=== PATIENT | male | born 1990 | race Caucasian/White ===

== ENCOUNTER 2023-04-13 20:12 | Emergency (ER) | payer MEDICAID, SELFPAY ==
[2023-04-13 20:25] VITALS: BP 148/86; BP 155/100; PULSE 106; PULSE 98; RESP 20; TEMP 36.2; O2SAT 95; BMI 37.3
--- NOTE | 2023-04-13 22:46 | ED_ITS ---
HPI - Back Pain/Injury General Chief Complaint: Back Pain/Injury Stated Complaint: Back Pain for 30mins Time Seen by Provider: 04/13/23 21:52 Source: patient Mode of arrival: EMS History of Present Illness HPI Narrative: 32-year-old male arrives via EMS for onset of back pain that started after he reached for a following water bottle and thinks he may have strained it. Otherwise, he denies any acute falls, fevers, chills, difficulty passing gas or having a bowel movement, denies any urinary symptoms but states that the pain wraps around the lateral aspect of his thigh. Related Data Previous Rx's Medication Instructions Recorded cyclobenzaprine 5 mg tablet 5 mg PO BEDTIME PRN muscle spasm 04/13/23 #5 tabs ketorolac 10 mg tablet 10 mg PO Q6H PRN pain 5 days #20 04/13/23 tabs Allergies Allergy/AdvReac Type Severity Reaction Status Date / Time No Known Allergies Allergy Verified 04/13/23 20:25 [No Known Allergies*] Review of Systems Review of Systems: Pertinent positives and negatives as stated in HPI PMFSH Past Medical History Source: nursing notes reviewed Social History Social History Advance Directives: No Advance Directives Information Provided: Yes Physical Exam Vital Signs: Vital Signs: Last Vital Signs Temp 97.2 F 04/13/23 20:25 Pulse 106 H 04/13/23 20:25 Resp 20 04/13/23 20:25 BP 148/86 H 04/13/23 20:25 Pulse Ox 95 04/13/23 20:25 O2 Del Method Room Air 04/13/23 20:25 BMI result Body Mass Index 37.3 VITAL SIGNS: Reviewed. GENERAL: Well developed, well nourished, in no acute distress. HEAD: Normocephalic/atraumatic EYES: PERRLA, EOMI EARS: Ext canals without abnormality NOSE: Nares patent bilateral OROPHARYNX: no oral lesions noted, posterior pharynx clear NECK: Supple, no adenopathy LUNGS: Normal breath sounds. No adventitious sounds or accessory muscle use. SpO2<95> CARDIOVASCULAR: Regular rate and rhythm without noted murmurs ABDOMEN: Soft, non-tender, non-distended with bowel sounds. BACK: No mid line vertebral tenderness or step-offs noted MUSCULOSKELETAL: No tenderness, deformities, or effusions noted on gross inspection. EXTREMITIES: No cyanosis, clubbing or edema. SKIN: Inspection of the skin reveals no rashes NEUROLOGIC: Alert and oriented x 4. Strength and sensation to light touch were grossly intact x 4. Medical Decision Making Medical Decision Making [facility] Narrative: 32-year-old male with presentation likely acute on chronic back pain due to strain with subsequent lumbar radiculopathy this does not seem to be consistent with sciatica and there is no evidence to suggest cauda equina. Patient will receive combination analgesics, muscle relaxants, lidocaine patch be discharged home in stable condition. I did encourage the patient to follow up and get a referral for physical therapy. Differential Diagnosis Please see the discussion above External Record Review External record reviewed: Prior outpatient labs Discharge Plan Discharge Clinical Impression: Strain of lumbar region, Lumbar radiculopathy Patient Disposition: Home, Self-Care Instructions: Muscle Strain (ED), Lumbar Radiculopathy (ED), Lower Back Exercises (ED) Additional Instructions: 1. Tylenol 1000 mg, orally, every 6 hours as needed for pain control. Do not exceed 4000 mg within 24 hours. 2. Lidocaine patch, apply this to the area maximal tenderness as directed on the outside packaging. 3. Please follow-up with your primary care provider to obtain referral for physical therapy. Return to the ER for any worsening symptoms. Prescriptions: New cyclobenzaprine 5 mg tablet 5 mg PO BEDTIME PRN (Reason: muscle spasm) Qty: 5 0RF ketorolac 10 mg tablet 10 mg PO Q6H PRN (Reason: pain) 5 Days Qty: 20 0RF Rx Instructions: Patient did received Toradol in the emergency room.
[2023-04-13 22:51] VITALS: BP 138/78; PULSE 99; RESP 15; TEMP 36.4; O2SAT 96
[2023-04-13] MEDS: Lidocaine 4 % Patch ADH..PATCH 1 PATCH TRANSDERMA (23:05)
[2023-04-13] MEDS: Acetaminophen 325 MG TABLET 975 MG PO (23:05)
[2023-04-13] MEDS: Ketorolac Tromethamine 15 MG/ML VIAL IM (23:05)
[2023-04-13] MEDS: Cyclobenzaprine HCl 10 MG TABLET PO (23:06)
== END 2023-04-13 23:15 | disposition home or self-care (01) ==
PROVIDERS: Emergency Provider Student in an Organized Health Care Education/Training Program
DX: S39.012A Strain of muscle, fascia and tendon of lower back, initial encounter (principal); X50.9XXA Other and unspecified overexertion or strenuous movements or postures, initial encounter; M54.16 Radiculopathy, lumbar region; Y93.89 Activity, other specified; Y92.019 Unspecified place in single-family (private) house as the place of occurrence of the external cause; Y99.9 Unspecified external cause status
CPT/HCPCS: 96372; 99284; J1885

== ENCOUNTER 2024-06-28 10:41 | Outpatient (REF) | payer OTHER, SELFPAY ==
[2024-06-28 10:50] LABS: MANUAL DIFF FLAG NO
[2024-06-28 11:05] LABS: Basophils Percent Auto 0.5 % (0-2); Eosinophils Absolute Auto 0.2 X10*3/uL (0.0-0.4); Hematocrit 47.2 % (42.0-52.0); Hemoglobin 15.9 g/dl (14.0-18.0); Imm Gran Abs Auto 0.01 X10*3/uL (0.00-0.03); Imm Gran Pct Auto 0.1 % (0.0-0.4); Lymphocytes Absolute Auto 2.2 X10*3/uL (1.2-4.9); Lymphocytes Percent Auto 28.7 % (20-40); Mean Corpuscular HGB Conc 33.7 g/dl (31.0-36.0); Mean Corpuscular Hemoglobin 27.7 pg (27.0-33.0); Mean Corpuscular Volume 82.4 fL (80.0-98.0); Mean Platelet Volume 10.6 fL (9.4-12.4); Monocytes Absolute Auto 0.6 X10*3/uL (0.1-1.2); Monocytes Percent Auto 7.1 % (2-11); Neutrophils Absolute Auto 4.7 x10*3/uL (2.0-8.3); Neutrophils Percent Auto 60.6 % (45-73); Platelet Count 248 X10*3/uL (160-400); Red Blood Count 5.73 X10*6/uL (4.60-5.80); Red Cell Distribution Width 14.3 % (11.0-16.0); White Blood Count 7.8 X10*3/uL (4.8-10.8)
[2024-06-28 11:36] LABS: Alanine Aminotransferase 107 U/L (0-40); Albumin Level 4.4 g/dL (3.5-5.0); Alkaline Phosphatase 75 U/L (39-117); Anion Gap 11 (12-20); Aspartate Amino Transferase 57 U/L (5-37); Bilirubin Total 0.9 mg/dL (0.0-1.0); Blood Urea Nitrogen 12 mg/dL (9-16); Calcium 9.4 mg/dL (8.4-10.2); Carbon Dioxide 27 mmol/L (22-29); Chloride 109 mmol/L (96-108); Cholesterol 263 mg/dL (<200); Estimated Glomerular Filt Rate > 60; Glucose Random 89 mg/dL (60-115); HDL Cholesterol 43 mg/dL (>40); LDL Cholesterol Calculated 181 mg/dL (<100); Sodium 143 mmol/L (135-145); Total Protein 7.8 g/dL (6.5-8.0); Triglycerides 198 mg/dL (<150)
[2024-06-28 11:49] LABS: Estimated Average Glucose 108 mg/dL; Hemoglobin A1C 148.9624 umol/L; Hemoglobin A1c % 5.4 % (<6.0)
[2024-06-28 11:51] LABS: TSH reflex Free T4 1.54 uIU/mL (0.32-4.0)
[2024-06-29 04:04] LABS: HIV AB/AG Nonreactive (Nonreactive); HIV Num 1 0.06 S/CO (0.00-0.99)
[2024-07-01 13:48] LABS: HCV Log PCR <1.18 NOT DETECTED Log IU/mL (NOT DETECTED); HepC Viral Load <15 NOT DETECTED IU/mL (NOT DETECTED)
== END 2024-06-28 10:42 | disposition home or self-care (01) ==
LOC: HO.LAB 10:41
PROVIDERS: PCP Internal Medicine; Visit Provider Internal Medicine
DX: R03.0 Elevated blood-pressure reading, without diagnosis of hypertension (principal)
CPT/HCPCS: 36415; 80053; 80061; 83036; 84443; 85025; 87389; 87522

== ENCOUNTER 2024-07-19 10:07 | Outpatient (REF) | payer OTHER, SELFPAY ==
--- NOTE | ~2024-07-19 | XR_ITS ---
EXAMINATION: XR LUMBOSACRAL SPINE CLINICAL INFORMATION: Chronic back pain. COMPARISON: None TECHNIQUE: AP, bilateral oblique and lateral views of the lumbar spine and lateral view of the lumbosacral junction. FINDINGS: The vertebral bodies and posterior elements are normal. No spondylolysis defect is seen on the oblique views. The disc spaces are preserved and the vertebral alignment is normal. The paraspinal soft tissues are normal. There are right upper quadrant surgical clips. XR/XR lumbar spine 4V min IMPRESSION: Unremarkable examination. Electronically signed by: Ti Lawrence MD 08/07/2024 07:21 PM EDT
== END 2024-07-19 10:08 | disposition home or self-care (01) ==
LOC: HO.XRAY 10:07
PROVIDERS: PCP Internal Medicine; Visit Provider Internal Medicine
DX: M54.42 Lumbago with sciatica, left side (principal); G89.29 Other chronic pain
CPT/HCPCS: 72110

== ENCOUNTER 2024-08-11 14:08 | Emergency (ER) | payer OTHER, SELFPAY ==
--- NOTE | ~2024-08-11 | XR_ITS ---
EXAMINATION: XR LUMBOSACRAL SPINE CLINICAL INFORMATION: Low back pain. COMPARISON: July 19, 2024 TECHNIQUE: Three views of the lumbosacral spine. FINDINGS: Normal sagittal alignment. Vertebral body heights and intervertebral disc spaces are preserved. Sacroiliac joints are intact. Surgical clips are noted over the right upper quadrant. XR/XR lumbar spine 2-3V IMPRESSION: No acute abnormality. Electronically signed by: Vignesh Stephens MD 08/11/2024 04:25 PM EDT
[2024-08-11 14:23] VITALS: BP 118/80; PULSE 85; O2SAT 99
--- NOTE | 2024-08-11 14:34 | ED.BACK ---
HPI - Back Pain/Injury General Chief Complaint: Back Pain/Injury Stated Complaint: LOW BACK PAIN DOWN L LEG PER EMS Time Seen by Provider: 08/11/24 14:28 Source: patient and EMS Mode of arrival: EMS Limitations: no limitations History of Present Illness HPI Narrative: 33 yo male with PMH for lumbar radiculopathy presenting to ED via EMS for 08/28 left sided LBP radiating down L leg, without numbness or tingling, since yesterday. Denies falls or inciting injury, states he was cleaning his bathroom but turned while bent over cleaning the toilet and felt the pain during cleaning motion. Denies any changes in bowel or bladder, denies saddle anesthesia. States he has had this same pain in the past, and was treated about a year or so ago with medications- he remembers ketorolac and something else, but I have also used meloxicam . States the ketoralac was helpful but has not had for over 6 months. Indicates he did take a meloxicam this am with his antihypertensive med but that was before this incident and it is not helping. Pain is present at rest and exacerbated with movement or activity. Reports no changes in ROM to BLE just pain. Has had intermittent flair ups since last year, the last one being about a month ago, at that time the meloxicam was helpful enough for the flair. Related Data Previous Rx's ?Medication ?Instructions ?Recorded cyclobenzaprine 5 mg tablet 5 mg PO BEDTIME PRN muscle spasm 04/13/23 #5 tabs ketorolac 10 mg tablet 10 mg PO Q6H PRN pain 5 days #20 04/13/23 tabs cyclobenzaprine 5 mg tablet 5 mg PO Q8H #7 tabs 08/11/24 lidocaine 5 % topical patch 1 patch topical DAILY #15 ea 08/11/24 (Lidoderm) Allergies Allergy/AdvReac Type Severity Reaction Status Date / Time No Known Allergies Allergy Verified 08/11/24 14:48 [No Known Allergies*] Review of Systems Review of Systems: Constitutional: No fever, chills, fatigue, night sweats, weight changes ENT/Mouth: No ear pain, hearing loss, nasal congestion, sinus pain, rhinorrhea, sore throat Eyes: No eye pain, swelling, redness, vision changes, discharge Cardio: No chest pain, palpitations, CONN, orthopnea, peripheral edema Pulm: No SOB, cough, sputum, wheezing, dyspnea, hemoptysis GI: No nausea, vomiting, hematemesis, abdominal pain, diarrhea, constipation, hematochezia, melena : No irregular bleeding, dysuria, frequency, urgency, hesitancy, hematuria, flank pain, urinary flow changes, urinary incontinence or retention MSK: No neck pain, joint pain, myalgias, +back pain Skin: No lesions, rashes Neuro: No weakness, numbness, paresthesias, LOC, dizziness, headache Psych: No anxiety/panic, depression, SI/HI, AH/VH All other systems reviewed and are negative. [facility] Past Medical History Attestation statement: The following information was validated with the patient. Source: old records reviewed and nursing notes reviewed Social History Social History Advance Directives: No Advance Directives Information Provided: No Physical Exam Vital Signs: Vital Signs: Last Vital Signs Temp 98 F 08/11/24 17:42 Pulse 76 08/11/24 17:42 Resp 17 08/11/24 17:42 BP 112/55 L 08/11/24 17:42 Pulse Ox 98 08/11/24 17:42 BMI result Body Mass Index 37.3 Hypotensive at 112/55, vitals otherwise WNL General: Well appearing, in no acute distress. Skin: Warm, dry, intact. No rashes or lesions. Head: Normocephalic, atraumatic. EENT: Hearing is intact b/l. Conjunctiva clear. Sclera is anicteric. PERRLA. EOM intact. Moist mucous membranes.? Neck: Supple without LAD Cardiac: Chest wall symmetric. RRR. Lungs: Normal respiratory effort without accessory muscle use. CTA bilaterally. Back: No midline spinous or paraspinal tenderness. No step off deformity. +ttp over left lumbar paraspinal muscles without palpable spasm. +positive straight leg raise Ext: Upper and lower extremities atraumatic, without tenderness, deformity, swelling or erythema. Full ROM throughout. Strength 5/5 throughout. Neuro: AOx3. Normal speech. Ambulating with steady gait. Psych: Appropriate mood and affect. Responds appropriately to questions. Course Course Course Narrative: 174 -- x-ray lumbar spine without obvious fracture or subluxation. On re-evaluation, patient reports improvement in pain with flexeril, toradol, and lido patch. ambilating with slow but steady gait to the bathroom. likely muscle strain. will send flexeril and lido patches to pharmacy. Patient has remained stable throughout ED visit today. Discussed worrisome signs and symptoms and when to return to the ED. All questions answered at this time. Patient is agreeable with disposition and stable for discharge. Medications Administered Discontinued Medications Generic Name Dose Route Start Last Admin Trade Name Edi PRN Reason Stop Dose Admin Cyclobenzaprine HCl 10 mg 08/11/24 15:00 08/11/24 16:28 Cyclobenzaprine Hcl 10 Mg Tablet PO 08/11/24 15:01 10 mg ONCE ONE Administration Ketorolac Tromethamine 30 mg 08/11/24 15:00 08/11/24 16:33 Ketorolac Tromethamine 30 Mg/Ml Vial IM 08/11/24 15:01 30 mg ONCE ONE Administration Lidocaine 1 patch 08/11/24 15:00 08/11/24 16:32 Lidocaine 4 % Patch Adh..Patch TRANSDERMA 08/11/24 15:01 1 patch ONCE ONE Administration Protocol Medical Decision Making Medical Decision Making MDM Narrative: 33 yo male with PMH for lumbar radiculopathy presenting to ED via EMS for 08/28 left sided LBP radiating down L leg, without numbness or tingling, since yesterday. Slightly hypotensive to 112/55, vitals otherwise WNL. On exam, there is no midline spinous or paraspinal tenderness. No step off deformity. ttp over left lumbar paraspinal muscles without palpable spasm. positive straight leg raise. NV intact distally. Sensation intact throughout. Strength 5/5 intact throughout. Differential diagnosis includes msk sprain, strain, muscle spasm, sciatica. Presentation not consistent with cauda equina, Guillain-[place], epidural abscess, cord compression. Plan for imaging, pain control, re-evaluation. Differential Diagnosis Differential Diagnoses: The differential diagnosis associated with the presentation includes as above Admission/Observation Not indicated Independent Interpretation I performed an independent interpretation of an: Plain X-Ray Interpretation: XR lumbar spine without fracture subluxation, agree with radiologist's interpretation. Radiology Impression Discussion of test interpretation with radiology: I have reviewed the radiologist's reading. Radiologist Impression: EXAMINATION: XR LUMBOSACRAL SPINE CLINICAL INFORMATION: Low back pain. COMPARISON: July 19, 2024 TECHNIQUE: Three views of the lumbosacral spine. FINDINGS: Normal sagittal alignment. Vertebral body heights and intervertebral disc spaces are preserved. Sacroiliac joints are intact. Surgical clips are noted over the right upper quadrant. XR/XR lumbar spine 2-3V IMPRESSION: No acute abnormality. Electronically signed by: Vignesh Stephens MD 08/11/2024 04:25 PM EDT Independent Historian Clinical information obtained from an independent historian. History obtained from or confirmed by: Spouse External Record Review External record reviewed: Inpatient record Prescription Management I considered prescription management with: Pain Medication and Other (Flexeril, lidocaine patch) Social Determinants Patient?s care significantly limited by Social Determinants of Health including: Other Social Determinant of Health Critical Care Time Critical Care Time Critical Care Time: No Discharge Plan Discharge Clinical Impression: Strain of lumbar paraspinous muscle Patient Disposition: Home, Self-Care Instructions: Muscle Strain (ED), Lower Back Exercises (ED) Additional Instructions: You were evaluated in the Emergency Department today for your back pain.? Your evaluation did not show signs of medical conditions requiring emergent intervention at this time. Avoid bending, lifting, or twisting. Use ice several times per day for 20 minutes at a time for the next 48 hours and then change to heat. We recommend you take 600mg ibuprofen every 6 hours or tylenol 650mg every 6 hours as needed for pain. If needed, you can alternate these medications so that you take one medication every 3 hours. For example, at noon take ibuprofen, then at 3pm take tylenol, then at 6pm take ibuprofen. Flexeril is a muscle relaxer. Take this at night as it makes you drowsy. Do not drive, drink alcohol, or operate machinery while taking it. Lidoderm patches are numbing patches. Apply to painful areas. Please schedule an appointment for follow-up with your primary care provider this week for further evaluation of your symptoms. Return to the Emergency Department if you experience worsening back pain, difficulty walking, fevers, numbness, tingling, incontinence, or any other concerning symptoms. In the case of an emergency call 911. Prescriptions: New cyclobenzaprine 5 mg tablet 5 mg PO Q8H Qty: 7 0RF lidocaine [Lidoderm] 5 % adhesive patch,medicated 1 patch topical DAILY Qty: 15 0RF Rx Instructions: leave on most painful area for up to 12 hrs No Action cyclobenzaprine 5 mg tablet 5 mg PO BEDTIME PRN (Reason: muscle spasm) Qty: 5 0RF ketorolac 10 mg tablet 10 mg PO Q6H PRN (Reason: pain) 5 Days Qty: 20 0RF Rx Instructions: Patient did received Toradol in the emergency room. [place] [facility] [place] [facility] [place] [facility] [place]] Stand Alone Forms: Work/School Release Interventions: ED Discharge Assessment Last Done: 08/11/24 17:42 Discharge Date/Time: 08/11/24 17:45 Print Language: Bahamian
[2024-08-11 14:44] VITALS: BP 112/55; PULSE 76; RESP 17; TEMP 36.6; O2SAT 98; BMI 37.3
--- OUTSIDE RECORDS SUMMARY | 2024-08-11 15:34 | XMS_ITS | Continuity of Care Document ---
Author Organization [facility] Address [address] [place] [address]- Care Team Providers Care Quality Control Checker Name Role Phone Not on Staff, PCP Primary Care Physician Unavail able Encounter [facility] Date(s): 03/19/23 - 04/18/23 [facility] [address] [place] [address]- Attending Physician: Lorenza Ramirez Admitting Physician: Lorenza Ramirez Referring Physician: AdmtrLorenza Allergies, Adverse Reactions, Alerts No Known Medication Allergies Medications gabapentin 300 mg oral capsule 300 mg, 1, capsule, By Mouth, 3 times a day, PRN, # 45 capsule, Refills 0, Tot. Refills 0, Maintenance, nerve pain, 03/19/23 12:10:00 EDT, Route to Pharmacy Electronically, [facility]/pharmacy #[id number], Partial fill upon patient request if the prescription is f... Start Date: 03/19/23 Stop Date: 04/03/23 Status: Ordered Patient Care team information Care Team Personnel Name: Not on Staff, PCP Position: S Physician (General Medicine) Member Role: PCP
[2024-08-11] MEDS: Cyclobenzaprine HCl 10 MG TABLET PO (16:28)
[2024-08-11] MEDS: Lidocaine 4 % Patch ADH..PATCH 1 PATCH TRANSDERMA (16:32)
[2024-08-11] MEDS: Ketorolac Tromethamine 30 MG/ML VIAL IM (16:33)
[2024-08-11 17:42] VITALS: BP 112/55; PULSE 76; RESP 17; TEMP 36.6; O2SAT 98
== END 2024-08-11 17:45 | disposition home or self-care (01) ==
PROVIDERS: Emergency Provider Emergency Medicine Emergency Medical Services; PCP Internal Medicine
DX: S39.012A Strain of muscle, fascia and tendon of lower back, initial encounter (principal); X58.XXXA Exposure to other specified factors, initial encounter; Y93.89 Activity, other specified; Y92.9 Unspecified place or not applicable; Y99.9 Unspecified external cause status; Z23 Encounter for immunization
CPT/HCPCS: 72100; 90471; 96372; 99283; 99284; J1885

== ENCOUNTER 2024-09-30 07:59 | Outpatient (RCR) | payer OTHER, SELFPAY ==
--- NOTE | 2024-09-11 14:29 | MHC.PT.EP ---
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 OBJECTIVE FINDINGS: LIMITED TRUNK AND HIP AROM/ DECR LEs FLEXIB; DECR POSTURAL AWRENESS AND ALTERED BODY MECH, (-) MOTOR DEFICITS, DECR CORE STAB, AND FLUCTUATING LBP AND Lt LE PAIN TO HIS FOOT. FUNCTIONALLY, THE Pt IS LIMITED W PROLONGED SITTING,STANDING, WALKING- HE IS CURRENTLY NOT EXERCISING AND HIS WORK DAY ENTAILS PROLONGED SITTING. HE IS A GOOD PT CANDIDATE AND WOULD BENEFIT FROM PT TO ADDRESS THE ABOVE FINDINGS AND ASSIST THE Pt INTO RESUMING REG ADLs/ SX MGMT TECHN. 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 Manual therapy to restore motion and function. Therapeutic exercise to improve strength and flexibility. Neuromuscular re-education for posture and balance. Therapeutic activities to return to functional activities of daily living. Electronically signed by: JANAY MUNIZ,PT Please sign and return to therapist. Thank you for your referral.
--- NOTE | 2024-12-30 13:43 | MHC.PT.DC ---
[facility] [place] Office [place] Office [place] Office [address] [phone] F: [phone] F: [phone] F: [phone] F: [phone] Physical Therapy Discharge Report Diagnosis: Lt SIDED LBP W Lt SCIATICA Date of Surgery: Date of Evaluation: 09/11/24 Date of Discharge: 12/30/24 Treatments to Date: 5 Cancellations to Date: 1 No Shows to Date: 3 Discharge Status: Improved Function Independent with HEP Patient Elected to Stop Visit Non-compliance Discharge Summary: IRAJ PROGRESSED IN PT- HE HAD A GREATER AWARENESS RE LEFT GLUTE ACTIV.. HE HAS A THOROUGH HEP, A FORMAL REASSESSMENT WAS NOT PERFORMED THE Pt DID NOT ATTEND HIS LAST FEW SCHED PT APPTS. Electronically signed by: JANAY MUNIZ, PT Please sign and return to therapist. Thank you for your referral.
== END 2024-12-30 13:44 | disposition home or self-care (01) ==
LOC: HO.PT 07:59
PROVIDERS: PCP Internal Medicine; Visit Provider Internal Medicine
DX: M54.42 Lumbago with sciatica, left side (principal)
CPT/HCPCS: 97110; 97162; 97535